=== PATIENT | female | born 1950 | race Caucasian/White ===

== ENCOUNTER 2022-08-01 18:25 | Emergency (ER) | payer MEDICARE, SELFPAY ==
[2022-08-01 18:44] VITALS: BP 130/68; PULSE 78; RESP 16; TEMP 36.9; O2SAT 97
--- NOTE | 2022-08-01 19:01 | ED.FEMALEGU ---
HPI - Female Genitourinary General Chief complaint: Urogenital-Female Stated complaint: uti complaint Time Seen by Provider: 08/01/22 19:00 Source: patient, family, RN notes reviewed and old records reviewed Mode of arrival: ambulatory Limitations: no limitations History of Present Illness HPI Narrative: 71 year old female who presents to [facility] care accompanied by spouse with complaints of burning with urination with recent completion of Macrobid one week ago. Patient reports that she has been dealing with UTI problems for the past month and has also been on previous antibiotic without improvement either. Patient denies any recent diarrhea, denies any CVA tenderness or any noted visualized blood, no fevers, chills or sweats or any body aches. Patient reports no nausea or vomiting or any fevers. MD elicited complaint: dysuria Related Data Home Medications Medication Instructions Recorded Confirmed aripiprazole 2 mg tablet 2 mg PO HS 08/01/22 08/01/22 aspirin 81 mg chewable tablet 81 mg PO HS 08/01/22 08/01/22 duloxetine 60 mg capsule,delayed 60 mg PO DAILY 08/01/22 08/01/22 release ezetimibe 10 mg tablet 10 mg PO DAILY 08/01/22 08/01/22 levothyroxine 75 mcg tablet 75 mcg PO DAILY 08/01/22 08/01/22 medroxyprogesterone 5 mg tablet 5 mg PO DAILY 08/01/22 08/01/22 metformin 500 mg tablet 500 mg PO DAILY 08/01/22 08/01/22 metoprolol succinate 25 mg 25 mg PO DAILY 08/01/22 08/01/22 tablet,extended release 24 hr montelukast 10 mg tablet 10 mg PO DAILY 08/01/22 08/01/22 omeprazole 20 mg capsule,delayed 20 mg PO DAILY 08/01/22 08/01/22 release simvastatin 20 mg tablet 20 mg PO DAILY 08/01/22 08/01/22 Allergies Allergy/AdvReac Type Severity Reaction Status Date / Time No Known Allergies Allergy Verified 08/01/22 18:58 Review of Systems Review of Systems: CONSTITUTIONAL: Denies fever, chills, or sweats. CARDIOVASCULAR: Denies chest pain, palpitations, or edema. RESPIRATORY: Denies cough or dyspnea. GASTROINTESTINAL: Denies abdominal pain, nausea, vomiting, or diarrhea. GENITOURINARY: Reports dysuria, frequency, urgency. Denies flank pain or hematuria. SKIN: Denies rash or itching. MUSCULOSKELETAL: Denies back pain or myalgia. Denies CVA tenderness NEUROLOGIC: Denies headache All systems reviewed & are unremarkable except as noted in HPI and below PMFSH Past Medical History Medical History (Updated 08/05/22 @ 08:58 by Najma Ramirez NP) Depression Elevated cholesterol GERD (gastroesophageal reflux disease) Hypertension Hypothyroidism Pre-diabetes Social History Social History (Updated 08/05/22 @ 08:55 by Najma Ramirez NP) Smoking status: Never smoker Alcohol intake: unknown Substance use: never Substance use type: does not use Gender identity (if verbalized by the patient): Female Comments At time of signature, agree with nursing past medical, surgical, social and family history. There is no relevant family history pertinent to the presenting complaint Exam Narrative: GENERAL: Well-appearing, well-nourished, and in no acute distress. HEAD: Normocephalic, atraumatic. NECK: Supple.no lymphadenopathy CHEST: Clear to auscultation. No respiratory distress.SAO2 97% on room air HEART: Regular rate and rhythm. No murmur heard. Normal peripheral pulses. ABDOMEN: Soft, nontender, nondistended, normal active bowel sounds. No CVA tenderness EXTREMITIES: Normal range of motion. No edema. SKIN: Warm, dry, no rash. NEURO: No focal deficits. Alert and oriented x3. Course Course Emergency Course: Patient is aware of diagnosis, understands and agrees to treatment plan.? Anticipatory guidance given.? Patient agrees to follow-up as directed and is aware of reasons to seek care at the emergency department. Portions of this record may have been created with voice recognition software Level of Care: Express Care Visit Vital Signs Vital signs: Vital Signs Temperature 36.9 C 08/01/22 18:44 Puls
== END 2022-08-01 19:28 | disposition home or self-care (01) ==
PROVIDERS: Emergency Provider Registered Nurse; PCP Internal Medicine
DX: N39.0 Urinary tract infection, site not specified (principal); E78.00 Pure hypercholesterolemia, unspecified; K21.9 Gastro-esophageal reflux disease without esophagitis; R73.03 Prediabetes; E03.9 Hypothyroidism, unspecified; Z79.82 Long term (current) use of aspirin
CPT/HCPCS: 81003; 87086; 99203; G0463